=== PATIENT | female | born 1980 | race Caucasian/White ===

== ENCOUNTER 2017-10-11 13:38 | Emergency (ER) | payer MEDICAID ==
[2017-10-11] MEDS ORDERED: NS 1,000 ML IV ONE (14:06)
[2017-10-11] MEDS ORDERED: fentaNYL 100 MCG/2 ML INJ IVP ONE (14:06)
--- NOTE | 2017-10-11 14:09 | EDPHY ---
HPI/HX/ROS/PE/MDM Narrative: CHIEF COMPLAINT: Throat pain HPI: This patient is a 36 y/o female complaining of severe throat pain. She is unable to speak much due to her discomfort. Her symptoms began ten days ago, but are considerably worse today. She has never had similar symptoms in the past. She has had strep throat many times in the past and her current symptoms feel different from these. She feels it is very difficult to speak and swallow due to her symptoms. Her pain is more pronounce on the right than the left. She denies fever but endorses cold sweats today. She has taken Tylenol and Aleve for relief. Further HPI difficult to obtain as patient is unable to speak clearly. REVIEW OF SYSTEMS: Aside from elements discussed in the HPI, a comprehensive 10-point review of systems was reviewed and is negative. PMH: Asthma. SOCIAL HISTORY: Lives in [place]. Does not abuse drugs or alcohol. PHYSICAL EXAM: General:Patient is alert, in no acute distress. ENT:Eyes are normal to inspection. ENT inspection normal. Moist mucous membranes. Not drooling. Tongue normal in appearance. Hot potato voice. Neck: Tenderness to right side of throat. Full range of motion. Respiratory:No respiratory distress. Breath sounds normal bilaterally. Cardiovascular: Regular rate and rhythm. Strong peripheral pulses. Normal cap refill. Abdomen:The abdomen is nontender to palpation. There are no peritoneal signs. There are normal bowel sounds. Back: Normal to inspection. No tenderness to palpation. Skin: Multiple horizontal scars across left dorsal forearm. Normal color. No rash. Warm and dry. Extremities: Normal appearance. Full range of motion. Neuro: Oriented x3. Normal motor function. Normal sensory function. ED Course: 36 y/o female presents with sore throat worsening over the past 10 days. She has a hot potato voice. Oropharynx appears normal on exam. Patient is tender to the right neck. 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 Plan for CT neck for further evaluation. IV established. Plan to administer 50mcg Fentanyl and 1L IV NS for pain relief. 14:[address] Matute, radiologist. CT positive for right-sided 8mm x 8mm peritonsillar abscess. 15:02 Consulted with LUIS Calix in otolaryngology. [facility] will consult. Plan to administer 3gm IV Unasyn and 10mg IV Decadron. 15:15 LUIS Dennis, at bedside. She scoped the patient and is comfortable with outpatient followup with antibiotics and steroids. Plan to discharge home in good condition as above with prescription for Augmentin and prednisone. Follow up and return precautions discussed. The patient is comfortable with this plan. - Data Points Imaging Results: Imaging Impressions Neck CT 10/11/17 14:09 Impression: 1. Small right peritonsillar abscess (inferior to the palatine tonsil) resulting in minimal mass effect upon the airway. 2. No retropharyngeal fluid collection or internal jugular vein thrombosis. Findings discussed with Emergency Department physician, Patrice Zheng MD, on 10/11/2017, 15:02. Imaging: Discussed imaging studies w/ bingo caller Radiologist Laboratory Results: Laboratory Results 10/11/17 14:19 10/11/17 14:19 10/11/17 10/11/17 10/11/17 14:24 14:19 14:19 WBC RBC Hgb POC Hgb 17.0 gm/dL H gm/dL (12.6-16.3) Hct POC Hct 50 % H % (38-47) MCV MCH MCHC RDW Plt Count MPV Neut % (Auto) Lymph % (Auto) Preston % (Auto) Eos % (Auto) Baso % (Auto) Nucleat RBC Rel Count Absolute Neuts (auto) Absolute Lymphs (auto) Absolute Monos (auto) Absolute Eos (auto) Absolute Basos (auto) Absolute Nucleated RBC Immature Gran % Immature Gran # POC Sodium 142 mEq/L mEq/L (135-145) Sodium 143 mEq/L mEq/L (135-145) POC Potassium 3.8 mEq/L mEq/L (3.3-5.0) Potassium 4.2 mEq/L mEq/L (3.5-5.2) POC Chloride 104 mEq/L mEq/L (97-110) Chloride 103 mEq/L mEq/L (97-110) Carbon Dioxide 24 mEq/l mEq/l (22-31) Anion Gap 16 mEq/L mEq/L (8-16) POC BUN 18 mg/dL mg/dL (7-23) BUN 17 mg/dL mg/dL (7-23) Creatinine 0.8 mg/dL mg/dL (0.6-1.0) POC Creatinine 0.9 mg/dL mg/dL (0.6-1.0) Estimated GFR > 60 Glucose 81 mg/dL mg/dL (70-100) POC Glucose 90 mg/dL mg/dL (70-100) Calcium 9.5 mg/dL mg/dL (8.5-10.4) Beta HCG, Qual NEGATIVE 10/11/17 14:19 WBC 12.88 10^3/uL H 10^3/uL (3.80-9.50) RBC 5.07 10^6/uL 10^6/uL (4.18-5.33) Hgb 15.3 g/dL g/dL (12.6-16.3) POC Hgb Hct 46.0 % % (38.0-47.0) POC Hct MCV 90.7 fL fL (81.5-99.8) MCH 30.2 pg pg (27.9-34.1) MCHC 33.3 g/dL g/dL (32.4-36.7) RDW 13.8 % % (11.5-15.2) Plt Count 291 10^3/uL 10^3/uL (150-400) MPV 10.6 fL fL (8.7-11.7) Neut % (Auto) 78.4 % H % (39.3-74.2) Lymph % (Auto) 13.2 % L % (15.0-45.0) Preston % (Auto) 5.4 % % (4.5-13.0) Eos % (Auto) 2.1 % % (0.6-7.6) Baso % (Auto) 0.5 % % (0.3-1.7) Nucleat RBC Rel Count 0.0 % % (0.0-0.2) Absolute Neuts (auto) 10.10 10^3/uL H 10^3/uL (1.70-6.50) Absolute Lymphs (auto) 1.70 10^3/uL 10^3/uL (1.00-3.00) Absolute Monos (auto) 0.70 10^3/uL 10^3/uL (0.30-0.80) Absolute Eos (auto) 0.27 10^3/uL 10^3/uL (0.03-0.40) Absolute Basos (auto) 0.06 10^3/uL 10^3/uL (0.02-0.10) Absolute Nucleated RBC 0.00 10^3/uL 10^3/uL (0-0.01) Immature Gran % 0.4 % % (0.0-1.1) Immature Gran # 0.05 10^3/uL 10^3/uL (0.00-0.10) POC Sodium Sodium POC Potassium Potassium POC Chloride Chloride Carbon Dioxide Anion Gap POC BUN BUN Creatinine POC Creatinine Estimated GFR Glucose POC Glucose Calcium Beta HCG, Qual Medications Given: Discontinued Medications Fentanyl (Sublimaze) 50 mcg IVP EDNOW ONE Stop: 10/11/17 14:07 Last Admin: 10/11/17 14:34 Dose: 50 mcg Sodium Chloride (Ns) 1,000 mls @ 0 mls/hr IV EDNOW ONE; Wide Open PRN Reason: Protocol Stop: 10/11/17 14:07 Last Admin: 10/11/17 14:33 Dose: 1,000 mls Point of Care Test Results: 10/11/17 14:24 POC Sodium 142 POC Potassium 3.8 POC Chloride 104 POC BUN 18 POC Creatinine 0.9 POC Glucose 90 General Time Seen by Provider: 10/11/17 13:58 Initial Vital Signs: Initial Vital Signs Temperature (C) 36.5 C 10/11/17 13:41 Heart Rate 94 10/11/17 13:41 Respiratory Rate 19 10/11/17 13:41 Blood Pressure 144/91 H 10/11/17 13:41 O2 Sat (%) 96 10/11/17 13:41 O2 Delivery Mode Room Air Allergies/Adverse Reactions: No Known Allergies Allergy (Unverified 10/11/17 13:40) Home Medications: Medication Instructions Recorded ALBUTEROL SULFATE 10/11/17 Amoxicillin/Clavulanate Pot 875 mg PO BID #14 tab 10/11/17 [Augmentin 875Mg] predniSONE 60 mg PO DAILY 5 Days tab 10/11/17 Departure - Departure Disposition: Home, Routine, Self-Care Clinical Impression: Peritonsillar abscess Condition: Good Instructions: Peritonsillar Abscess (ED) Additional Instructions: 1. Take Augmentin as prescribed. 2. Take Prednisone as prescribed. 3. Follow up with Ear, Nose, and Throat in 1-2 days for symptoms unresolved. Follow up with your primary care provider for re-evaluation. 4. Return to the emergency department for fever, inability to swallow, difficulty breathing, or other worsening of condition. Referrals: Claudio Aviles MD [Medical Doctor] - As per Instructions Prescriptions: Amoxicillin/Clavulanate Pot [Augmentin 875Mg] 875 mg PO BID #14 tab predniSONE 60 mg PO DAILY 5 Days tab Report Scribed for: Patrice Zheng Report Scribed by: Araceli Newton Date of Report: 10/11/17 Time of Report: 15:09 Physician Review and Approval Statement: Portions of this note were transcribed by an ED scribe. I personally performed the history, physical exam, and medical decision making; and confirm the accuracy of the information in the transcribed note.
[2017-10-11] MEDS ORDERED: IOPAMIDOL (ISOVUE-300) 100 ML BTL ONE (14:32)
[2017-10-11 14:57] LABS: PLATELET COUNT 291 10^3/uL (150-400)
[2017-10-11] MEDS ORDERED: DEXAMETHASONE 10 MG/ML VIAL IVP ONE (15:03)
[2017-10-11] MEDS ORDERED: AMPICILLIN/SULBACTAM 3 GM VIAL IV ONE ×2 (15:03→15:30)
--- NOTE | 2017-10-11 15:48 | GCON ---
[f rep st] CONSULTATION OTORHINOLARYNGOLOGY CONSULTATION DATE OF CONSULTATION: 10/11/2017 HISTORY OF PRESENT ILLNESS: The patient is a 36-year-old female who presents to the emergency room f or severe right-sided throat pain. The patient states that she began with a sore throat about a week ago. It was mild at that time, and then over the past 24 hours, her sore throat became very severe. She is able to eat or drink. She denies any fevers. The whole right side of her head hurts. PAST MEDICAL HISTORY: Negative. ALLERGIES: No known drug allergies. PAST SURGICAL HISTORY: Negative. SOCIAL HISTORY: The patient is a smoker. PHYSICAL EXAMINATION: GENERAL: The patient is alert and orientated, sitting upright in bed. HEENT: Head atraumatic, normocephalic. Ears are healthy. Nose is clear. Oral cavity and oropharynx are normal. No signs of erythema or exudate. Fiberoptic laryngoscopy reveals nose with some clear mucus . Nasopharynx was negative. Larynx was completely healthy, except for some mild inflammation of her right her right arytenoid. No signs of ulcerations or lesions. Vocal cords are mobile. No masses. No signs of abscess. NECK: An acutely tender right jugular digastric node measuring about 2 cm in size. It is soft to palpation. IMAGING: A CAT scan was obtained and this revealed a very early 8 mm questionable abscess in inferio r right tonsil. ASSESSMENT AND PLAN: Patient with early right peritonsillar abscess and right reactive adenopathy. She has already being given a dose of Unasyn and started on Decadron. She will go home with Augmenti n and prednisone. Hopefully, she will begin to feel better quickly. She should contact me if she juares s any further concerns. /[id number]/MODL
[2017-10-11 17:02] VITALS: BP 119/69
== END 2017-10-11 17:03 | disposition home or self-care (01) ==
DX: J36 Peritonsillar abscess (principal); E86.9 Volume depletion, unspecified; J45.909 Unspecified asthma, uncomplicated
CPT/HCPCS: 82947-QW; 96365; J0295; J1100; J3010; Q9967

== ENCOUNTER 2017-11-04 05:30 | Emergency (ER) | payer MEDICAID ==
[2017-11-04 05:41] VITALS: BP 123/98
[2017-11-04] MEDS ORDERED: AMOXICILLIN/CLAVULANATE POT 875/125 MG TAB PO ONE (05:45)
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
[2017-11-04] MEDS ORDERED: IBUPROFEN 600 MG TAB PO ONE (06:02)
== END 2017-11-04 06:11 | disposition home or self-care (01) ==
DX: S70.12XA Contusion of left thigh, initial encounter (principal); J45.909 Unspecified asthma, uncomplicated; F17.200 Nicotine dependence, unspecified, uncomplicated; S70.312A Abrasion, left thigh, initial encounter; Y04.1XXA Assault by human bite, initial encounter; Y99.8 Other external cause status; Y93.89 Activity, other specified